=== PATIENT | female | born 1990 | race Caucasian/White ===

== ENCOUNTER 2021-07-11 06:54 | Emergency (ER) | payer SELFPAY ==
--- NOTE | ~2021-07-11 | CT_ITS ---
EXAMINATION: CT brain wo con EXAM DATE: 07/11/2021 07:51 INDICATION: Altered mental status. TECHNIQUE: Spiral CT of the head was performed without contrast. Axial, coronal and sagittal images were reviewed. The dose-length product (DLP) for this examination was 605.33 mGy-cm. The exposure w as tailored according to patient size, and iterative reconstruction (ASIR) was used as additional dos e reduction technique. There is no prior study for comparison. FINDINGS: There is no acute intraparenchymal hemorrhage. No evidence of intraparenchymal brain mass lesion. No evidence of acute infarction. There is no mass effect or midline shift. The ventricles are normal in size. There are no extra-axial collections. There are no acute calvarial fractures. T he orbits are unremarkable. Soft tissue is unremarkable. The visualized sinuses and mastoid air araseli ls are well aerated. IMPRESSION: 1. No acute intracranial findings. Reviewed, dictated and finalized at location A. [facility] [employer]
[2021-07-11 06:43] VITALS: BP 122/86; PULSE 70; RESP 20; TEMP 37.2; O2SAT 98
--- NOTE | 2021-07-11 07:11 | PC.NURSE ---
Report given to BLANCHE Napier.
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
[2021-07-11 07:54] LABS: Basophils Percent Auto 0.3 % (0.2-1.2); Eosinophils Percent Auto 0.2 % (0-4.4); Hematocrit 40.7 % (37.0-47.0); Hemoglobin 13.9 g/dL (12.0-15.0); Immature Granulocyte Absolute 0.01 K/mm3 (0.00-0.031); Immature Granulocyte Percent A 0.2 % (0-0.5); Lymphocytes Absolute Auto 1.55 K/mm3 (0.9-3.2); Lymphocytes Percent Auto 26.1 % (18.3-44.2); Mean Corpuscular HGB Conc 34.2 g/dl (32-36); Mean Corpuscular Volume 90.8 fl (80-100); Mean Platelet Volume 9.8 fl (7.4-10.4); Monocytes Absolute Auto 0.7 K/mm3 (0.1-0.6); Monocytes Percent Auto 12.1 % (2.6-8.5); Neutrophils Absolute Auto 3.6 K/mm3 (1.3-6.7); Neutrophils Percent Auto 61.1 % (45.5-73.1); Platelet Count Result 266 k/mm3 (150-375); Red Blood Count 4.48 M/mm3 (4.2-5.4); Red Cell Distribution Width 12.7 % (11.5-14.5); White Blood Count 5.9 K/mm3 (4.5-10.0)
[2021-07-11 08:06] LABS: Alanine Aminotransferase 22 U/L (4-35); Albumin Level 5.1 g/dL (3.5-5.1); Alkaline Phosphatase 62 U/L (38-126); Anion Gap 12 mmol/L (8-16); Aspartate Amino Transferase 25 U/L (14-36); Bilirubin,Total 0.4 mg/dL (0.2-1.3); Blood Urea Nitrogen 8 mg/dL (7-17); Calcium 9.6 mg/dL (8.4-10.2); Carbon Dioxide 25 mmol/L (22-30); Chloride 101 mmol/L (98-107); Estimated Glomerular Filt Rate > 60; Ethanol < 10 mg/dL (<10); Glucose 106 mg/dL (65-110); Potassium 3.6 mmol/L (3.4-5.0); Sodium 138 mmol/L (137-145)
[2021-07-11 08:08] LABS: Amphetamine Screen Urine Negative (Negative); Barbiturate Screen Urine Negative (Negative); Benzodiazepines Screen Urine Negative (Negative); Cannabinoid Screen Urine Negative (Negative); Cocaine Screen Urine Negative (Negative); Methadone Screen Urine Negative (Negative); Opiate Screen Urine Negative (Negative); Phencyclidine Screen Urine Negative (Negative)
[2021-07-11 08:28] LABS: Add Urine Microscopic? YES; Appearance Urine Clear (Clear); Bacteria Urine Trace /hpf; Bilirubin Urine Negative (Negative); Blood Urine 2+ (Negative); Color Urine Straw (Yellow); Glucose Urine UA Negative (Negative); Ketones Urine Negative (Negative); Leukocyte Esterase Ur Negative LEU/UL (Negative); Mucus Urine Rare /lpf; Nitrate Urine Negative (Negative); Protein Urine Negative (Negative); Squamous Epithelial Cell Urine Rare /hpf (Few); Urobilinogen Urine Negative mg/dL (<2.0); WBC Urine 0-3 /hpf
[2021-07-11 08:38] LABS: Specific Grav Ur 1.004 (1.001-1.035)
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
--- NOTE | 2021-07-11 09:14 | PC.NURSE ---
Pt into hallway looking for her mother. Pts mother stepped away for a bit and informed pt of this prior to her leaving. PT was also looking for the exit at this time.
--- NOTE | 2021-07-11 09:30 | PC.NURSE ---
Pt out of bed looking for her mom. Pt redirected back to her room
--- NOTE | 2021-07-11 09:36 | PC.NURSE ---
Pt out of bed clapping her hands stating i just want to say hi . Pt redirected back to bed.
--- NOTE | 2021-07-11 09:38 | PC.NURSE ---
Anila from Crisis called and states that a worker is on her way out
--- NOTE | 2021-07-11 09:56 | PC.NURSE ---
Pt in room saying cut all our ears off please PT has breakfast try at bedside
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
[2021-07-11] MEDS: OLANZapine 10 MG INJ VIAL 5 MG IM (11:58)
[2021-07-11] MEDS: WATER, STERILE FOR INJECTION 10 ML VIAL XX (11:59)
[2021-07-11 12:00] LABS: EDCOVIDSCREEN Positive (Negative)
--- NOTE | 2021-07-11 13:19 | PC.NURSE ---
Spoke with [facility] [place]. Due to positive covid status they will not be able to place pt at this time. They will return to ED tomorrow to renew involuntary petition.
[2021-07-11] MEDS: LORazepam INJ (*CRX) 2 MG/ML VIAL 1 MG IM (15:23)
--- NOTE | 2021-07-11 15:42 | PC.NURSE ---
Up in hallway naked. Pt returned to bed.
--- NOTE | 2021-07-11 16:04 | PC.NURSE ---
Pt up in room with clothing removed. Returned to bed.
--- NOTE | 2021-07-11 18:07 | PC.NURSE ---
Sleeping. Mother at bedside.
--- NOTE | 2021-07-11 19:50 | PC.NURSE ---
Pt walking around outside of room eating banana. Instructed to put mask back on but pt needs frequent reminders to return to room.
[2021-07-11 19:53] VITALS: BP 115/59; PULSE 77; O2SAT 98
--- NOTE | 2021-07-11 19:58 | PC.NURSE ---
Pt ambulatory c steady, even, unassisted gait. Pt denies SI/HI, AH, and VH. Pt is responding to all questions appropriately. voice soft. Alert to self, able to recall month and year. Knows she is at a hospital but unable to tell this RN name of facility. Recalls she lives in [place] and appears to know that [place] is close to that. Vitals obtained and warm blanket provided. Mother no longer at bedside. Bed alarm in place. Pt able to be redirected back to bed and currently appears to be resting with eyes closed, resps even/nonlabored and regular. No Covid s/s noted. Per offgoing RN, crisis will reassess pt tomorrow. will continue to monitor.
--- NOTE | 2021-07-11 21:11 | PC.NURSE ---
Pt requesting to see her father. Educated on visitor policy by tablet technician, as pt is covid +. Pt verbalized understanding.
--- NOTE | 2021-07-11 23:59 | PC.NURSE ---
Pt appears to be resting comfortably on stretcher c eyes closed. Resps even/nonlabored. no s/s of distress.
[2021-07-12] VITALS: PULSE 70; RESP 20; O2SAT 100
--- NOTE | 2021-07-12 06:08 | PC.NURSE ---
Pt's mother leaving, reports pt wants to take a nap. pt currently resting on stretcher c eyes closed. appears asleep. resps even, nonlabored, regular. Pt's mother educated regarding need for patient to wear a mask while in this facility, especially since she is Covid +. Mother stated She hasn't worn a mask the whole time she's been here, but it's ok. Explained to mother that this was the 3rd mask I had provided to pt since her arrival, as she continues to misplace them in her room. Pt agreeable to wear mask, and ambulatory to restroom with steady, even, unassisted gait.
--- NOTE | 2021-07-12 06:35 | PC.NURSE ---
Insulated metal coffee cup removed from room by this RN, and placed in belongings bag with pt senior web applications developer it and secured with other pt belongings.
[2021-07-12 07:23] VITALS: BP 108/72; PULSE 57; RESP 19; O2SAT 99
--- NOTE | 2021-07-12 07:27 | PC.NURSE ---
Assumed care of pt. pt cheerful and cooperative at this time. pt having some flight of ideas when speaking but answering my questions appropriatly
--- NOTE | 2021-07-12 08:24 | PC.NURSE ---
pt given breakfast tray at this time
--- NOTE | 2021-07-12 09:56 | PC.NURSE ---
Per Jonathan MANCIA, pt came out of room with no top on. Pt redirected to room and is in bed resting now
--- NOTE | 2021-07-12 10:17 | PC.NURSE ---
Pt came out of room undressed per BLANCHE Castillo. He assisted her back to the room and she got dressed. This RN, assisted her back to bed.
[2021-07-12 11:15] VITALS: BP 132/74; PULSE 62; RESP 18; O2SAT 98
--- NOTE | 2021-07-12 11:52 | PC.NURSE ---
pt given lunch tray at this time. Mother at bedside
[2021-07-12 13:42] LABS: SARS-CoV-2 RNA PCR Positive
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
[2021-07-12 15:51] VITALS: BP 118/76; PULSE 62; RESP 18; O2SAT 98
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
[2021-07-12 19:02] VITALS: BP 119/73; PULSE 64; RESP 18; O2SAT 99
--- NOTE | 2021-07-12 19:20 | PC.NURSE ---
assumed care of patient
--- NOTE | 2021-07-12 21:08 | PC.NURSE ---
pt up and down out of bed redirected and goes back to bed waiting placement
[2021-07-12] MEDS: LORazepam INJ (*CRX) 2 MG/ML VIAL 1 MG IM (22:58)
[2021-07-12] MEDS: HALOPERIDOL LACTATE 5 MG/ML VIAL IM (23:02)
--- NOTE | 2021-07-13 03:35 | PC.NURSE ---
sleeping resp even unlabored
[2021-07-13 04:21] VITALS: BP 98/58; PULSE 62; RESP 16; O2SAT 98
--- NOTE | 2021-07-13 07:36 | PC.NURSE ---
Assumed care. Sleeping. Mother at bedside was updated on plan of care.
[2021-07-13 08:01] VITALS: BP 130/76; PULSE 81; RESP 18; O2SAT 98
--- NOTE | 2021-07-13 08:03 | PC.NURSE ---
Ambulatory to bathroom with mother. Pt is A & O x3. Pt and mother informed of plan of care.
--- NOTE | 2021-07-13 09:17 | PC.NURSE ---
Crisis in to re-evaluate.
--- NOTE | 2021-07-16 08:11 | PC.NURSE ---
Pt. called requesting to know if she received the vaccine while here. Rn updated pt. that she did not receive vaccine here while in the ED. pt. states Thank God, I want to rely whole heartedly on God for my immunity.
== END 2021-07-13 10:04 | disposition home or self-care (01) ==
PROVIDERS: Emergency Medicine; Emergency Provider Emergency Medicine; PCP Pain Medicine Interventional Pain Medicine
DX: F23 Brief psychotic disorder (principal); U07.1 COVID-19; Z87.891 Personal history of nicotine dependence
CPT/HCPCS: 36415; 70450; 80053; 80307; 81001; 81025; 84443; 85025; 87426; 96372; 99284; C9803; J1630; J2060; U0003; U0005

== ENCOUNTER 2021-12-28 20:07 | Emergency (ER) | payer BC, SELFPAY ==
--- NOTE | ~2021-12-28 | CT_ITS ---
EXAMINATION: CT brain wo con DATE: 12/29/2021 15:55 INDICATION: Altered mental status. Hallucinations. TECHNIQUE: Computed tomography (CT) of the head was performed without intravenous contrast. Sagittal and coronal reconstructions were performed. The mA was adjusted according to patient size. Iterative reconstruction technique was employed. The dose-length product was 605.33 mGy-cm. COMPARISON: head CT dated 07/11/2021 FINDINGS: No acute intracranial hemorrhage, acute infarction or abnormal extra axial fluid collection. Ventricl es are normal and symmetric. No mass/mass effect. Mucosal thickening in the left sphenoid sinus. The orbits and mastoid air cells are normal. IMPRESSION: 1. Normal brain. No acute intracranial process. Reviewed, dictated and finalized at location B.
[2021-12-28 20:15] VITALS: BP 114/79; PULSE 82; RESP 16; TEMP 37.1; O2SAT 99
[2021-12-28 20:42] LABS: Basophils Absolute Auto 0.1 K/mm3 (0.0-0.1); Basophils Percent Auto 0.6 % (0.2-1.2); Eosinophils Absolute Auto 0.1 K/mm3 (0-0.3); Eosinophils Percent Auto 0.7 % (0-4.4); Hemoglobin 12.9 g/dL (12.0-15.0); Immature Granulocyte Absolute 0.02 K/mm3 (0.00-0.031); Immature Granulocyte Percent A 0.2 % (0-0.5); Lymphocytes Absolute Auto 2.78 K/mm3 (0.9-3.2); Mean Corpuscular HGB Conc 33.1 g/dl (32-36); Mean Corpuscular Hemoglobin 30.6 pg (26-34); Mean Corpuscular Volume 92.4 fl (80-100); Mean Platelet Volume 9.7 fl (7.4-10.4); Monocytes Absolute Auto 0.6 K/mm3 (0.1-0.6); Monocytes Percent Auto 6.1 % (2.6-8.5); Neutrophils Absolute Auto 5.5 K/mm3 (1.3-6.7); Neutrophils Percent Auto 61.4 % (45.5-73.1); Platelet Count Result 276 k/mm3 (150-375); Red Blood Count 4.22 M/mm3 (4.2-5.4); Red Cell Distribution Width 12.4 % (11.5-14.5)
[2021-12-28 20:50] LABS: Appearance Urine Clear (Clear); Bilirubin Urine Negative (Negative); Blood Urine 1+ (Negative); Color Urine Yellow (Yellow); Glucose Urine UA Negative (Negative); Ketones Urine Negative (Negative); Leukocyte Esterase Ur Negative LEU/UL (Negative); Nitrate Urine Negative (Negative); Protein Urine Negative (Negative); Urobilinogen Urine 0.2 mg/dL (<2.0)
[2021-12-28 20:51] LABS: Ethanol < 10 mg/dL (<10)
[2021-12-28 20:52] LABS: Mucus Urine Rare /lpf; WBC Urine 0-3 /hpf
[2021-12-28 20:56] LABS: Alanine Aminotransferase 18 U/L (6-35); Albumin Level 5.2 g/dL (3.5-5.1); Alkaline Phosphatase 62 U/L (38-126); Anion Gap 10 mmol/L (8-16); Aspartate Amino Transferase 29 U/L (14-36); Bilirubin,Total 0.2 mg/dL (0.2-1.3); Blood Urea Nitrogen 9 mg/dL (7-17); Calcium 9.3 mg/dL (8.4-10.2); Carbon Dioxide 25 mmol/L (22-30); Chloride 106 mmol/L (98-107); Estimated CRCL calculation 129 ml/min; Estimated Glomerular Filt Rate > 60; Glucose 96 mg/dL (65-110); Potassium 3.7 mmol/L (3.4-5.0); Sodium 141 mmol/L (137-145)
[2021-12-28 20:56] LABS: Add Urine Microscopic? YES
[2021-12-28 21:08] LABS: Benzodiazepines Screen Urine Negative (Negative)
[2021-12-28 21:10] LABS: Amphetamine Screen Urine Negative (Negative); Cannabinoid Screen Urine Negative (Negative); Cocaine Screen Urine Negative (Negative); Methadone Screen Urine Negative (Negative); Opiate Screen Urine Negative (Negative); Phencyclidine Screen Urine Negative (Negative)
[2021-12-28 21:12] LABS: Barbiturate Screen Urine Negative (Negative)
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
[2021-12-28 21:19] LABS: Pregnancy On Board Control Positive; Urine Pregnancy Test Negative
[2021-12-28 21:27] LABS: Acetaminophen < 10 ug/mL (10-30); Salicylate < 1.0 mg/dL (2-20); Thyroid Stimulating Hormone 0.515 uIU/mL (0.465-4.680)
[2021-12-28 22:28] LABS: SARS-CoV-2 RNA PCR Negative
[2021-12-28] MEDS: OLANZapine 10 MG INJ VIAL 5 MG IM (23:06)
[2021-12-28] MEDS: WATER, STERILE FOR INJECTION 10 ML VIAL XX (23:06)
--- NOTE | 2021-12-28 23:20 | PC.NURSE ---
pt ran out out of ed and was detained at triage desk by security and staff. pt was walked back to room h-1 without incident
--- NOTE | 2021-12-29 00:10 | PC.NURSE ---
Allan with crisis called back and took info on this pt. Allan states that he will send a electronics worker out.
--- NOTE | 2021-12-29 06:03 | PC.NURSE ---
report to nurse sharlene. pt asleep without distress
--- NOTE | 2021-12-29 07:33 | PC.NURSE ---
Report from BLANCHE Holt received. Breakfast ordered for patient.
[2021-12-29] MEDS: HALOPERIDOL 1 MG TABLET PO (12:15)
[2021-12-29] MEDS: LORazepam (*CRX) 1 MG TABLET PO (12:16)
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
--- NOTE | 2021-12-29 14:30 | PC.NURSE ---
spoke with avril at [facility]. facesheet faxed [phone]
[2021-12-29 17:20] VITALS: BP 128/86; PULSE 90; RESP 16; TEMP 36.4; O2SAT 99
== END 2021-12-29 21:07 ==
PROVIDERS: Emergency Medicine; Emergency Provider Emergency Medicine
DX: F29 Unspecified psychosis not due to a substance or known physiological condition (principal); Z20.822 Contact with and (suspected) exposure to COVID-19; Z87.891 Personal history of nicotine dependence
CPT/HCPCS: 36415; 70450; 80053; 80307; 81001; 81025; 84443; 85025; 96372; 99285; A9270; C9803; U0003; U0005

== ENCOUNTER 2023-05-28 18:48 | Emergency (ER) | payer BC, SELFPAY ==
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
[2023-05-28 19:16] VITALS: BP 143/68; PULSE 74; RESP 19; TEMP 36.6; O2SAT 99
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
[2023-05-28] MEDS: ACETAMINOPHEN 500 MG TABLET 1000 MG PO (20:21)
[2023-05-28] MEDS: LORazepam INJ (*CRX) 2 MG/ML VIAL IM (20:28)
[2023-05-28 20:29] VITALS: BP 122/74; PULSE 72; RESP 15; O2SAT 100
[2023-05-28] MEDS: HALOPERIDOL LACTATE 5 MG/ML VIAL IM (20:29)
[2023-05-28 21:05] LABS: Basophils Percent Auto 0.3 % (0.2-1.2); Hematocrit 39.4 % (37.0-47.0); Hemoglobin 13.1 g/dL (12.0-15.0); Immature Granulocyte Absolute 0.03 K/mm3 (0.00-0.031); Immature Granulocyte Percent A 0.3 % (0-0.5); Lymphocytes Absolute Auto 2.11 K/mm3 (0.9-3.2); Mean Corpuscular HGB Conc 33.2 g/dl (32-36); Mean Corpuscular Volume 90.2 fl (80-100); Mean Platelet Volume 10.2 fl (7.4-10.4); Monocytes Absolute Auto 0.7 K/mm3 (0.1-0.6); Monocytes Percent Auto 7.1 % (2.6-8.5); Neutrophils Absolute Auto 7.2 K/mm3 (1.3-6.7); Neutrophils Percent Auto 71.3 % (45.5-73.1); Platelet Count Result 315 k/mm3 (150-375); Red Blood Count 4.37 M/mm3 (4.2-5.4); Red Cell Distribution Width 12.3 % (11.5-14.5); White Blood Count 10.1 K/mm3 (4.5-10.0)
--- NOTE | 2023-05-28 21:13 | PC.NURSE ---
pt. parent reports they are going home. pt. parent Mathew [phone]
[2023-05-28 21:21] LABS: Acetaminophen 16 ug/mL (10-30); Alanine Aminotransferase 15 U/L (6-35); Alkaline Phosphatase 62 U/L (38-126); Anion Gap 14 mmol/L (8-16); Aspartate Amino Transferase 24 U/L (14-36); Bilirubin,Total 0.5 mg/dL (0.2-1.3); Blood Urea Nitrogen 5 mg/dL (7-17); Calcium 9.7 mg/dL (8.4-10.2); Carbon Dioxide 21 mmol/L (22-30); Chloride 102 mmol/L (98-107); Estimated CRCL calculation 146 ml/min; Estimated Glomerular Filt Rate > 60; Glucose 103 mg/dL (65-110); Potassium 3.5 mmol/L (3.4-5.0); Salicylate < 1.0 mg/dL (2-20); Sodium 137 mmol/L (137-145)
[2023-05-28 21:22] LABS: Ethanol < 10 mg/dL (<10)
[2023-05-28 21:35] LABS: Appearance Urine Clear (Clear); Bacteria Urine None Seen /hpf; Bilirubin Urine Negative (Negative); Blood Urine 1+ (Negative); Color Urine Yellow (Yellow); Glucose Urine UA Negative (Negative); Ketones Urine 3+ mg/dL (Negative); Leukocyte Esterase Ur Negative LEU/UL (Negative); Nitrate Urine Negative (Negative); Non Pathogenic Casts 0-2; Protein Urine Negative (Negative); RBC Urine 0-2 /hpf (0-2); Specific Grav Ur 1.005 (1.001-1.035); Squamous Epithelial Cell Urine None seen /hpf (Few); Urobilinogen Urine 0.2 mg/dL (<2.0); WBC Urine 0-5 /hpf
[2023-05-28 21:36] LABS: Add Urine Microscopic? YES
[2023-05-28 21:40] LABS: Influenza A QL RT-PCR Negative (Negative); Influenza B QL RT-PCR Negative (Negative); SARS-CoV-2 RNA PCR Negative (Negative)
[2023-05-28 21:46] LABS: Amphetamine Screen Urine Negative (Negative); Barbiturate Screen Urine Negative (Negative); Benzodiazepines Screen Urine Negative (Negative); Cannabinoid Screen Urine Negative (Negative); Cocaine Screen Urine Negative (Negative); Methadone Screen Urine Negative (Negative); Opiate Screen Urine Negative (Negative); Phencyclidine Screen Urine Negative (Negative)
[2023-05-28 22:14] VITALS: BP 124/74; PULSE 72; RESP 16; O2SAT 97
[2023-05-28 22:32] LABS: Pregnancy On Board Control Positive; Urine Pregnancy Test Negative
[2023-05-29 00:56] VITALS: BP 122/74; PULSE 62; RESP 16; O2SAT 100
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
--- NOTE | 2023-05-29 05:56 | PC.NURSE ---
Patient wandering in the hallway with erratic thoughts, word salad, tangetial and flight of ideas. Patient expresses her anger with staff and states I am going to get a explosive specialist, it is not a crime to walk naked in this orthodoxy . Patient then tries to leave the ER. Patient redirected to another room for closer observation. EDP made aware.
--- NOTE | 2023-05-29 06:03 | PC.NURSE ---
while attempting to administer medication to patient, patient refuses and states she is willing to cooperate/stay in her room. Medication not administered per patient request.
--- NOTE | 2023-05-29 06:14 | PC.NURSE ---
Patient elopes from room and runs out of the room. Patient sprints out of the ER and out to the parking lot. Security and Jesus CLAIRE made aware.
[2023-05-29] MEDS: HALOPERIDOL LACTATE 5 MG/ML VIAL IM (06:53)
[2023-05-29] MEDS: LORazepam INJ (*CRX) 2 MG/ML VIAL IM (06:54)
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
--- NOTE | 2023-05-29 07:49 | PC.NURSE ---
Breakfast order for pt. Pt arousable, denies S/I or H/I. Makes comment bates is the one thing we are commanded not to eat in the Bible, we shouldn't eat it Pt states she is aware of transfer to [facility]. Pt informed ride well be here at 0900. Pt cooperative.
[2023-05-29 08:52] VITALS: BP 124/78; PULSE 68; RESP 16; TEMP 36.8; O2SAT 99
== END 2023-05-29 08:52 ==
PROVIDERS: Student in an Organized Health Care Education/Training Program; Emergency Provider Emergency Medicine
DX: S19.9XXA Unspecified injury of neck, initial encounter (principal); M54.9 Dorsalgia, unspecified; F31.9 Bipolar disorder, unspecified; F20.9 Schizophrenia, unspecified; Z11.52 Encounter for screening for COVID-19; Z87.891 Personal history of nicotine dependence; V47.5XXA Car driver injured in collision with fixed or stationary object in traffic accident, initial encounter
CPT/HCPCS: 36415; 70450; 72125; 80053; 80307; 81001; 81025; 84443; 85025; 87636; 96372; 99285; A9270; J1630; J2060

== ENCOUNTER 2025-04-02 02:34 | Emergency (ER) | payer SELFPAY ==
[2025-04-02 02:42] VITALS: BP 145/86; PULSE 61; RESP 18; TEMP 36.7; O2SAT 97
--- OUTSIDE RECORDS SUMMARY | 2025-04-02 03:06 | XMS_ITS | Patient Health Record ---
Author Organization [facility] Address [address] [place] [address] Care Team Providers Care Packaging Materials Inspector Name Role Phone Roderick Menon Primary Care Provider [phone] Allergies No Known Allergies Reason For Referral No Information Medications Medication SIG (Take, Route, Fr equency, Duration) Notes Start Date End Date Status carBAMazepine 200 MG 30 Orally Twice a d ay; Duration: 30 days Active Abilify 20 MG 1 tablet Orally at n ight; Duration: 30 days Active Social History Sex Assigned At : Social History Observation Description Sex Assigned At Female Problems Problem Type SNOMED Code ICD Code Onset Dates Problem Status W/U Status Risk Notes Problem Bipolar 1 disorder (807101955) Bipolar 1 disorder (F31.9) Active confirmed Plan Of Treatment No Information Insurance Providers Payer Name Payer Address Payer Phone Subscriber Number Group Number Insured Name Patient Relationship to Insured Coverage Start Date Coverage End Date [facility] Plan [id number] [place] [id number] [phone] [id number] JAMEEL ERICKSON Self - patient is the insured 2 Medical (General) History Surgical History Surgery Date(Month/Year) Spinal surgery C6-T1 2006 Spinal surgery L4-L5 2009 Breast Augmentation 2011
--- NOTE | 2025-04-02 03:15 | ED_ITS ---
HPI - Psych General Chief Complaint: Psychiatric Symptoms <Mehul Marin MD - Last Filed: 04/03/25 05:26> Stated Complaint: PSYCH EVAL - SCHIZOPHRENIA OFF MEDS X 5 DAYS <Mehul Marin MD - Last Filed: 04/03/25 05:26> Time Seen by Provider: 04/02/25 02:41 <Mehul Marin MD - Last Filed: 04/03/25 05:26> History of Present Illness HPI Narrative: 34-year-old female with history of psychiatric illness presenting to the emergency department via EMS for concerns of decompensated psychosis, walking down the [address] since speaking to herself. She had negative symptoms of schizophrenia per EMS where she was refusing to answer questions and had very delayed psychomotor and verbal responses and flat affect. During my encounter the patient she is taking several moments between sentences to speak and respond to me and has very flat affect, blunted responses and speaking in what appears to be biblical terms with multiple quotes that appear to be related to mormon and the Bible. Does not answer my questions directly and not able to assess suicidality or homicidality. On review of the EMR she has had previous psychosis and hospitalized involuntarily for this. <Mehul Marin MD - Last Filed: 04/03/25 05:26> Related Data Home Medications: Home Medications ?Medication ?Instructions ?Recorded ?Confirmed ?Last Taken ?Type No Home Medications 12/28/21 Unknown H istory <Mehul Marin MD - Last Filed: 04/03/25 05:26> Allergies/Adverse Reactions: Allergies Allergy/AdvReac Type Severity Reaction Status Date / Time ibuprofen AdvReac Mild ANXIETY Verified 05/28/23 18:58 <Mehul Marin MD - Last Filed: 04/03/25 05:26> Review of Systems 2 Review of Systems: As reviewed above in HPI <Mehul Marin MD - Last Filed: 04/03/25 05:26> PMFSH Past Medical History Medical History: Medical History Bipolar disorder Schizophrenia <Mehul Marin MD - Last Filed: 04/03/25 05:26> Surgical History Surgical History: Surgical History History of cervical spinal surgery <Mehul Marin MD - Last Filed: 04/03/25 05:26> Social History Social History: Social History Smoking status: Former smoker Alcohol intake: unknown Substance use type: unknown <Mehul Marin MD - Last Filed: 04/03/25 05:26> Exam 2 Narrative: GENERAL: Flat affect, blunted responses HEAD: [Normocephalic, atraumatic.] EYES: [PERRLA and EOMI.] ENT: Nares clear, no rhinorrhea or epistaxis. Mucous membranes moist. NECK: Supple. CHEST: [Clear to auscultation. No respiratory distress.] HEART: [Regular rate and rhythm]. No murmur heard. [Normal peripheral pulses.] ABDOMEN: [Soft, nondistended], [nontender], [No rigidity or guarding] EXTREMITIES: Normal range of motion. [No edema.] SKIN: Warm, dry, no rash. NEURO: [No focal deficits]. Alert and oriented [x3.] PSYCH: Negative symptoms of potential schizophrenia with blunted affect and blunted responses, delayed psychomotor responses, does not answer homicidal or suicidal questions. Does not answer visual or auditory hallucinations but possibly responding to internal stimuli <Mehul Marin MD - Last Filed: 04/03/25 05:26> Course Course Emergency Course: I assumed care of this patient at shift change with pending disposition. No interval change in her condition however she came out of the room screaming , she was redirected into a room p.o. Zyprexa was given she remained calm and cooperative. I did affidavit on her Was notified by the nurse that she has been accepted to [facility] < Rodriguez Coker MD - Last Filed: 04/02/25 13:33> Vital Signs Vital signs: Vital Signs Temperature 36.7 C 04/02/25 02:42 Pulse Rate 61 04/02/25 02:42 Respiratory Rate 18 04/02/25 02:42 Blood Pressure 145/86 H 04/02/25 02:42 Pulse Oximetry 97 04/02/25 02:42 Oxygen Delivery Room Air 04/02/25 02:42 Temperature 36.4 C 04/02/25 16:22 Pulse Rate 60 04/02/25 16:22 Respiratory Rate 18 04/02/25 16:22 Blood Pressure 111/62 04/02/25 16:22 Pulse Oximetry 100 04/02/25 16:22 Oxygen Delivery Room Air 04/02/25 02:42 <Mehul Marin MD - Last Filed: 04/03/25 05:26> Vital Signs Temperature 36.7 C 04/02/25 02:42 Pulse Rate 61 04/02/25 02:42 Respiratory Rate 18 04/02/25 02:42 Blood Pressure 145/86 H 04/02/25 02:42 Pulse Oximetry 97 04/02/25 02:42 Oxygen Delivery Room Air 04/02/25 02:42 Temperature 36.4 C 04/02/25 16:22 Pulse Rate 60 04/02/25 16:22 Respiratory Rate 18 04/02/25 16:22 Blood Pressure 111/62 04/02/25 16:22 Pulse Oximetry 100 04/02/25 16:22 Oxygen Delivery Room Air 04/02/25 02:42 <Rodriguez Coker MD - Last Filed: 04/02/25 13:33> MDM - Psych MDM Narrative Medical decision making narrative: 34-year-old female with history of psychiatric illness presenting to the emergency department via EMS for concerns of decompensated psychosis, walking down the [address] since speaking to herself. She had negative symptoms of schizophrenia per EMS where she was refusing to answer questions and had very delayed psychomotor and verbal responses and flat affect. During my encounter the patient she is taking several moments between sentences to speak and respond to me and has very flat affect, blunted responses and speaking in what appears to be biblical terms with multiple quotes that appear to be related to mormon and the Bible. Does not answer my questions directly and not able to assess suicidality or homicidality. On review of the EMR she has had previous psychosis and hospitalized involuntarily for this. Negative symptoms of potential schizophrenia with blunted affect and blunted responses, delayed psychomotor responses, does not answer homicidal or suicidal questions. Does not answer visual or auditory hallucinations but possibly responding to internal stimuli. Patient is hemodynamically stable, not any acute physical distress but does appear decompensated from a psychiatric perspective. Medical clearance laboratory studies obtained to assess for any abnormal labs or other causes to her psychosis but she does have a history of schizophrenia and not taking her medications after EMS report was given after talking to family including her father. She is speaking about very hyper evangelical topics repeatedly and avoiding questions/not answering questions related to SI/HI. Laboratory studies are unremarkable. Patient medically cleared for psychiatric evaluation and stable for transportation. Will be made involuntary given patient's decompensated psychosis and limited evaluation for safety at this time. Patient has been evaluated by the crisis team for involuntary placement. She was more open and talkative to the crisis team but still oversew of and exhibiting schizophrenia symptoms requiring hospitalization. Patient care endorsed to morning physician pending placement. <Mehul Marin MD - Last Filed: 04/03/25 05:26> Medical Records Attestation: I reviewed the patient's medical records. <Mehul Marin MD - Last Filed: 04/03/25 05:26> Lab Data Attestation: I reviewed the patient's lab results. <Mehul Marin MD - Last Filed: 04/03/25 05:26> Result diagrams: 04/02/25 03:09 04/02/25 03:09 <Mehul Marin MD - Last Filed: 04/03/25 05:26> Labs: Lab Results 04/02/25 04/02/25 Range/Units 03:09 03:15 WBC 10.3 H (4.5-10.0) K/mm3 RBC 4.43 (4.2-5.4) M/mm3 Hgb 12.9 (12.0-15.0) g/dL Hct 38.4 (37.0-47.0) % MCV 86.7 (80-100) fl MCH 29.1 (26-34) pg MCHC 33.6 (32-36) g/dl RDW 12.6 (11.5-14.5) % Plt Count 331 (150-375) k/mm3 MPV 9.6 (7.4-10.4) fl Immature Gran % (Auto) 0.5 (0-0.5) % Neut % (Auto) 72.8 (45.5-73.1) % Lymph % (Auto) 18.3 (18.3-44.2) % [place] % (Auto) 7.8 (2.6-8.5) % Eos % (Auto) 0.2 (0-4.4) % Baso % (Auto) 0.4 (0.2-1.2) % Lymph # (Auto) 1.88 (0.9-3.2) K/mm3 [place] # (Auto) 0.8 H (0.1-0.6) K/mm3 Eos # (Auto) 0.0 (0-0.3) K/mm3 Baso # (Auto) 0.0 (0.0-0.1) K/mm3 Abs Immat Gran (auto) 0.05 H (0.00-0.031) K/mm3 Absolute Neuts (auto) 7.5 H (1.3-6.7) K/mm3 Absolute Nucleated RBC 0.000 (0.0-0.012) K/mm3 Nucleated RBC % 0.0 (0.0-0.2) % Sodium 135 L (137-145) mmol/L Potassium 3.5 (3.4-5.0) mmol/L Chloride 103 (98-107) mmol/L Carbon Dioxide 16 L (22-30) mmol/L Anion Gap 16 H (4-12) mmol/L BUN 6 L (7-17) mg/dL Creatinine 0.55 L (0.7-1.0) mg/dL Estim Creat Clear Calc Not Reportable Estimated GFR > 60 (59 - ) Glucose 77 (65-110) mg/dL Calcium 9.0 (8.4-10.2) mg/dL Total Bilirubin 0.6 (0.2-1.3) mg/dL AST 23 (14-36) U/L ALT 12 (6-35) U/L Alkaline Phosphatase 62 (38-126) U/L Total Protein 8.3 H (6.3-8.2) g/dL Albumin 4.9 (3.5-5.1) g/dL TSH (Reflex) 1.770 (0.465-4.68) uIU/mL Urine Color Yellow (Yellow) Urine Appearance Cloudy H (Clear) Urine pH 5.5 (5.0-9.0) Ur Specific [place] 1.023 (1.001-1.035) Urine Protein 1+ H (Negative) mg/dL Urine Glucose (UA) Negative (Negative) mg/dL Urine Ketones 4+ H (Negative) mg/dL Ur Blood (Man) 3+ H (Negative) Urine Nitrate Negative (Negative) Urine Bilirubin Negative (Negative) Urine Urobilinogen 1.0 (<2.0) mg/dL Leukocyte Esterase Rfl Negative (Negative) ANKUR/UL Urine RBC 11-20 H (0-2) /hpf Urine WBC 0-5 (0-3) /hpf Ur Squamous Epith Cells None seen (Few) /hpf Urine Bacteria None seen /hpf Urine Casts 0-2 POC Urine HCG, Qual Negative (Negative) Urine Opiates Screen Negative (Negative) Urine Methadone Screen Negative (Negative) Ur Barbiturates Screen Negative (Negative) Ur Phencyclidine Scrn Negative (Negative) Ur Amphetamine Screen Negative (Negative) U Benzodiazepines Scrn Negative (Negative) Urine Cocaine Screen Negative (Negative) U Cannabinoids Screen Negative (Negative) Ethyl Alcohol < 10 (<10) mg/dL Influenza A (RT-PCR) Negative (Negative) Influenza B (RT-PCR) Negative (Negative) SARS-CoV-2 RNA (RT-PCR) Negative (Negative) <Mehul Marin MD - Last Filed: 04/03/25 05:26> Lab Results 04/02/25 04/02/25 Range/Units 03:09 03:15 WBC 10.3 H (4.5-10.0) K/mm3 RBC 4.43 (4.2-5.4) M/mm3 Hgb 12.9 (12.0-15.0) g/dL Hct 38.4 (37.0-47.0) % MCV 86.7 (80-100) fl MCH 29.1 (26-34) pg MCHC 33.6 (32-36) g/dl RDW 12.6 (11.5-14.5) % Plt Count 331 (150-375) k/mm3 MPV 9.6 (7.4-10.4) fl Immature Gran % (Auto) 0.5 (0-0.5) % Neut % (Auto) 72.8 (45.5-73.1) % Lymph % (Auto) 18.3 (18.3-44.2) % [place] % (Auto) 7.8 (2.6-8.5) % Eos % (Auto) 0.2 (0-4.4) % Baso % (Auto) 0.4 (0.2-1.2) % Lymph # (Auto) 1.88 (0.9-3.2) K/mm3 [place] # (Auto) 0.8 H (0.1-0.6) K/mm3 Eos # (Auto) 0.0 (0-0.3) K/mm3 Baso # (Auto) 0.0 (0.0-0.1) K/mm3 Abs Immat Gran (auto) 0.05 H (0.00-0.031) K/mm3 Absolute Neuts (auto) 7.5 H (1.3-6.7) K/mm3 Absolute Nucleated RBC 0.000 (0.0-0.012) K/mm3 Nucleated RBC % 0.0 (0.0-0.2) % Sodium 135 L (137-145) mmol/L Potassium 3.5 (3.4-5.0) mmol/L Chloride 103 (98-107) mmol/L Carbon Dioxide 16 L (22-30) mmol/L Anion Gap 16 H (4-12) mmol/L BUN 6 L (7-17) mg/dL Creatinine 0.55 L (0.7-1.0) mg/dL Estim Creat Clear Calc Not Reportable Estimated GFR > 60 (59 - ) Glucose 77 (65-110) mg/dL Calcium 9.0 (8.4-10.2) mg/dL Total Bilirubin 0.6 (0.2-1.3) mg/dL AST 23 (14-36) U/L ALT 12 (6-35) U/L Alkaline Phosphatase 62 (38-126) U/L Total Protein 8.3 H (6.3-8.2) g/dL Albumin 4.9 (3.5-5.1) g/dL TSH (Reflex) 1.770 (0.465-4.68) uIU/mL Urine Color Yellow (Yellow) Urine Appearance Cloudy H (Clear) Urine pH 5.5 (5.0-9.0) Ur Specific [place] 1.023 (1.001-1.035) Urine Protein 1+ H (Negative) mg/dL Urine Glucose (UA) Negative (Negative) mg/dL Urine Ketones 4+ H (Negative) mg/dL Ur Blood (Man) 3+ H (Negative) Urine Nitrate Negative (Negative) Urine Bilirubin Negative (Negative) Urine Urobilinogen 1.0 (<2.0) mg/dL Leukocyte Esterase Rfl Negative (Negative) ANKUR/UL Urine RBC 11-20 H (0-2) /hpf Urine WBC 0-5 (0-3) /hpf Ur Squamous Epith Cells None seen (Few) /hpf Urine Bacteria None seen /hpf Urine Casts 0-2 POC Urine HCG, Qual Negative (Negative) Urine Opiates Screen Negative (Negative) Urine Methadone Screen Negative (Negative) Ur Barbiturates Screen Negative (Negative) Ur Phencyclidine Scrn Negative (Negative) Ur Amphetamine Screen Negative (Negative) U Benzodiazepines Scrn Negative (Negative) Urine Cocaine Screen Negative (Negative) U Cannabinoids Screen Negative (Negative) Ethyl Alcohol < 10 (<10) mg/dL Influenza A (RT-PCR) Negative (Negative) Influenza B (RT-PCR) Negative (Negative) SARS-CoV-2 RNA (RT-PCR) Negative (Negative) <Rodriguez Coker MD - Last Filed: 04/02/25 13:33> Discharge Plan Discharge Clinical Impression: Acute exacerbation of psychosis, Schizophrenia <Mehul Marin MD - Last Filed: 04/03/25 05:26> Patient Disposition: Psychiatric Hosp <Mehul Marin MD - Last Filed: 04/03/25 05:26> Condition: Stable <Mehul Marin MD - Last Filed: 04/03/25 05:26> Patient Language: Estonian <Mehul Marin MD - Last Filed: 04/03/25 05:26> Prescriptions: No Action No Home Medications <Mehul Marin MD - Last Filed: 04/03/25 05:26> Follow-up/Referrals: PHYSICIAN,DRY KILN LOADER [Primary Care Provider, Internal Medicine] <Mehul Marin MD - Last Filed: 04/03/25 05:26>
[2025-04-02 03:17] LABS: BEDSIDEPREGUCG Negative (Negative)
[2025-04-02 03:19] LABS: Hematocrit 38.4 % (37.0-47.0); Hemoglobin 12.9 g/dL (12.0-15.0); Immature Granulocyte Percent A 0.5 % (0-0.5); Lymphocytes Absolute Auto 1.88 K/mm3 (0.9-3.2); Mean Corpuscular HGB Conc 33.6 g/dl (32-36); Mean Corpuscular Hemoglobin 29.1 pg (26-34); Mean Corpuscular Volume 86.7 fl (80-100); Nucleated Red Blood Cells Absolute Auto 0.000 K/mm3 (0.0-0.012); Nucleated Red Blood Cells Perc 0.0 % (0.0-0.2); Platelet Count Result 331 k/mm3 (150-375); Red Blood Count 4.43 M/mm3 (4.2-5.4); White Blood Count 10.3 K/mm3 (4.5-10.0)
[2025-04-02 03:26] LABS: Add Urine Microscopic? YES; Appearance Urine Cloudy (Clear); Glucose Urine UA Negative (Negative); Leukocyte Esterase Ur Negative LEU/UL (Negative); Nitrate Urine Negative (Negative); Non Pathogenic Casts 0-2; Specific Grav Ur 1.023 (1.001-1.035)
[2025-04-02 03:32] LABS: Alanine Aminotransferase 12 U/L (6-35); Albumin Level 4.9 g/dL (3.5-5.1); Alkaline Phosphatase 62 U/L (38-126); Anion Gap 16 mmol/L (4-12); Aspartate Amino Transferase 23 U/L (14-36); Bilirubin,Total 0.6 mg/dL (0.2-1.3); Blood Urea Nitrogen 6 mg/dL (7-17); Calcium 9.0 mg/dL (8.4-10.2); Carbon Dioxide 16 mmol/L (22-30); Chloride 103 mmol/L (98-107); Estimated Glomerular Filt Rate > 60; Glucose 77 mg/dL (65-110); Potassium 3.5 mmol/L (3.4-5.0); Sodium 135 mmol/L (137-145); Total Protein 8.3 g/dL (6.3-8.2)
[2025-04-02 03:38] LABS: Cannabinoid Screen Urine Negative (Negative)
[2025-04-02 03:55] LABS: Influenza A QL RT-PCR Negative (Negative); Influenza B QL RT-PCR Negative (Negative); SARS-CoV-2 RNA PCR Negative (Negative)
[2025-04-02 04:03] LABS: Thyroid Stimulating Hormone Reflex 1.770 uIU/mL (0.465-4.68)
--- NOTE | 2025-04-02 06:35 | PC.NURSE ---
CRISIS here to evaluate the patient.
--- NOTE | 2025-04-02 07:02 | PC.NURSE ---
This RN contacted the patients father and updated him on her care. Updated that we are looking at outside facilities for psych placement.
[2025-04-02 07:44] VITALS: BP 101/50; PULSE 58; RESP 16; TEMP 36.4; O2SAT 100
--- NOTE | 2025-04-02 07:45 | PC.NURSE ---
Pt cooperative and resting comfortably in bed at this time. sitter at bedside for elopement risk. pt denies SI/HI. offered breakfast, pt politely declines at this time.
--- NOTE | 2025-04-02 12:20 | PC.NURSE ---
[facility] called with accepting position. Dr. Horton to [phone]. Report # [phone].
--- NOTE | 2025-04-02 12:26 | PC.NURSE ---
Report called to [phone] , spoke with Lalita for report.
--- NOTE | 2025-04-02 14:30 | PC.NURSE ---
pt started to become erratic and unpredictable. Pt ran out of ER tunnel system, PD called to return pt back to ER.
[2025-04-02] MEDS: HALOPERIDOL LACTATE 5 MG/ML VIAL IM (14:36)
--- NOTE | 2025-04-02 14:36 | PC.NURSE ---
PD returned pt to room 15, medication administered as anxiolytic. pt educated to remain in room, drink and blanket offered. no requests at this time.
--- NOTE | 2025-04-02 15:17 | PC.NURSE ---
Ollie at [facility] called asking for update, update given about pt acceptance and transfer status.
[2025-04-02 16:22] VITALS: BP 111/62; PULSE 60; RESP 18; TEMP 36.4; O2SAT 100
== END 2025-04-02 16:24 ==
PROVIDERS: Student in an Organized Health Care Education/Training Program; Emergency Provider Family Medicine
DX: F20.9 Schizophrenia, unspecified (principal)
CPT/HCPCS: 36415; 80053; 80307; 81001; 81025; 82077; 84443; 85025; 87636; 96372; 99285; A9270; J1630